=== PATIENT | male | born 1975 | race Two or more races ===

== ENCOUNTER 2024-05-29 07:15 | Day surgery (SDC) | payer MEDICAID, SELFPAY ==
--- NOTE | 2024-05-23 07:00 | EKG_ITS ---
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
[2024-05-23 07:17] VITALS: BMI 30.2
[2024-05-23 09:26] LABS: Basophils % (Auto) 0 % (0-2.5); Eosinophils # (Auto) 0.2 Thou/mm3 (0.0-0.5); Eosinophils % (Auto) 2 % (0-10); Hematocrit 46.3 % (41.0-53.0); Hemoglobin 15.9 g/dL (13.5-16.0); Immature Granulocytes % (Auto) 1 % (0-0); Immature Granulocytes Auto 0.05 Thou/mm3 (0.00-0.00); Lymphocytes # (Auto) 1.6 Thou/mm3 (1.0-4.8); Lymphocytes % (Auto) 17 % (10-50); Mean Corpuscular HGB Conc 34.3 g/dl (31.0-37.0); Mean Corpuscular Hemoglobin 29.8 pg (25.0-35.0); Mean Corpuscular Volume 87 fL (80-100); Monocytes # (Auto) 0.5 Thou/mm3 (0.0-0.8); Monocytes % (Auto) 6 % (0-12); Neutrophils # (Auto) 7.1 Thou/mm3 (1.8-7.7); Neutrophils % (Auto) 75 % (37-80); Nucleated Red Blood Cell % 0 /100 WBC (0); Platelet Count 386 Thou/mm3 (140-440); RDW Standard Deviation 43.1 fL (35.1-43.9); Red Blood Count 5.34 Miln/mm3 (4.50-5.90); White Blood Count 9.5 Thou/mm3 (3.8-10.6)
[2024-05-23 09:32] LABS: Anion Gap 8 (7-16); BUN/Creatinine Ratio 14 Ratio (12-20); Blood Urea Nitrogen 14 mg/dL (9-23); Calcium 9.9 mg/dL (8.3-10.6); Carbon Dioxide 28.8 mMol/L (20.0-31.0); Chloride 106 mMol/L (98-107); Glucose 105 mg/dL (74-106); Osmolality,Calculated 285 (275-295); Potassium 4.9 mMol/L (3.4-5.1); Sodium 143 mMol/L (136-145); eGFR > 60 See Note
[2024-05-29] VITALS (7 sets, daily range): BP systolic 104–134; BP diastolic 58–83; PULSE 73–98; RESP 15–18; TEMP 36.4–37; O2SAT 95–97; BMI 30.2
--- NOTE | 2024-05-29 10:28 | ESOP_ITS ---
Date of Procedure 05/29/24 Pre Op Diagnosis Right inguinal hernia Post Op Diagnosis Direct right inguinal hernia Procedure Right inguinal hernia repair with mesh Findings Patient was found to have direct right inguinal hernia defect Procedure Description Patient brought into the operating room in supine position. After administration of general endotracheal anesthesia, patient's right groin was shaved, prepped and draped in standard surgical manner. The right inguinal crease was anesthetized with half percent Marcaine. An approximately 6 cm incision was made and dissection was carried to subcutaneous tissue. The Brad's fascia was divided and the external oblique aponeurosis was opened towards the external ring. The hernia sac and the spermatic cord structures were from the posterior aspect of the external oblique aponeurosis at the level of pubic tubercle. The hernia sac was then meticulously dissected off the spermatic cord structures at the level of internal ring. Patient was noted to have direct right inguinal hernia defect. The defect was closed with [id number] sutures using 0 Vicryl. The floor of inguinal canal was then reconstructed with ultra Pro proceed mesh. The mesh was secured with running 2- 0 Prolene suture. The mesh secured medially to the pubic tubercle, superiorly into the conjoin tendon, inferiorly and to the shelving edge of inguinal ligament, the mesh was placed around the cord structures and tacked under the external oblique aponeurosis laterally. The area was copiously and thoroughly washed and irrigated, all the fluids were suctioned and the suction fluid returned clear. Hemostasis was adequate and satisfactory. External oblique aponeurosis was closed with running 2-0 Vicryl suture, and Brad's fascia was closed with interrupted suture using 3-0 Vicryl. The incision was closed with 4-0 Monocryl in subcutaneous fashion. Instruments, needles and sponge counts were reported to be correct ?2. Patient tolerated the procedure well. He was extubated, breathing spontaneously and without difficulty and was transferred to postanesthesia care in stable condition. Anesthesia GETA and local Pathology / specimen None Estimated Blood Loss 5 Condition Stable Disposition PACU Surgeon Vishnu Mahmood MD Surgical Staff Operation Date: 05/29/24 09:30 Case Staff [employer] OPERATOR: Marshall Hodge RN First Assistant: Madai Cruz
--- NOTE | 2024-05-29 10:39 | SUR.PHASEI ---
1039 Patient arrived to recovery awake and alert, on oxygen 10L via oxy mask with an oral airway in place, breathing unlabored, vital signs stable, dressing intact to right groin; derambond, fluffs, medipore tape, no bleeding noted, lung sounds clear upon auscultation, bilateral radial pulses present when palpated, report received from Christine PALAFOX/ Shanna PALAFOX and Adam MEJIA
--- NOTE | 2024-05-29 11:30 | SUR.PHASEII ---
1130 Patient meets discharge criteria from recovery, awake and alert, breathing unlabored, vital signs stable, denies pain, dressing intact; no bleeding noted, abdominal binder applied to patient per MD order, patient ate a jello and drinking cranberry juice; tolerated well, denies nausea, patient assisted with dressing into his clothing by his , discharge instructions given with the assistance of the telephone assistant teacher Latanya ID#[id number] to patient and his with teach-back approach, both receptive, patient signed discharge instructions. Patient given all his belongings prior to discharge, transported via wheelchair and left in a private vehicle.
== END 2024-05-29 11:30 | disposition home or self-care (01) ==
PROVIDERS: PCP Family Medicine; Referring Provider Surgery; Visit Provider Surgery
PROC: (CPT 49650; principal; 2024-05-29 09:30)
DX: K40.90 Unilateral inguinal hernia, without obstruction or gangrene, not specified as recurrent (principal); Z01.810 Encounter for preprocedural cardiovascular examination
CPT/HCPCS: 49650; 36415; 80048; 85025; 93005; A4217; A4649; C1781; J0131; J0690; J1100; J1885; J2405; J2704; J3010; J3490